=== PATIENT | male | born 1945 | race Caucasian/White ===

== ENCOUNTER 2018-04-16 10:31 | Day surgery (SDC) | payer OTHER, SELFPAY ==
[2018-04-03 12:55] VITALS: BMI 24.4
[2018-04-16] VITALS (7 sets, daily range): BP systolic 112–143; BP diastolic 71–82; PULSE 70–77; RESP 12–18; TEMP 36–36.8; O2SAT 97–100; BMI 24.4
--- NOTE | 2018-04-16 | PATH_ITS ---
[facility] Accession Number: [id number] . 01 Material submitted: . ANAL CONDYLOMA . 01 Clinical history: . ANAL CONDYLOMA; RULE OUT SQUAMOUS CELL CA . 01 Diagnosis: Anal, Biopsy: Consistent, in the proper clinical setting, with condyloma acuminatum, markedly inflamed (please see comment). MRV/04/21/2018 . 01 Comment: Although there is mild keratinocytic atypia, these changes are favored to be reactive. Dermal fibrosis and changes suggestive of epidermal inclusion cyst formation are also noted. Clinical pathological correlation is advised. . 01 Electronically signed: . Varsha Cadet MD, Dermatopathologist NPI- [id number] . 01 Gross description: . Received in formalin, labeled with the patient's name and anal condyloma, rule out squamous cell carcinoma are six bell-brown verrucoid soft tissue fragments measuring 2.8 x 2.5 x 0.6 cm in aggregate. The specimen is serially sectioned and entirely submitted in cassettes A1-A2. (MARILYN:[id number]) /MRV . Pathologist provided ICD-10: A63.0 . 01 CPT . 777980 Performed at: 01 [facility] [address], [place], [place] [id number] MD Edgard Velázquez MD Phone: [phone]
[2018-04-16] MEDS: LACTATED RINGERS 1,000 ML 42 ML IV (11:09)
--- NOTE | 2018-04-16 11:13 | PM.PREOP ---
Pre-operative Note Interval Note Pre-op Check: Yes History & Physical Reviewed by Physician and Yes Exam Performed Changes: No
--- NOTE | 2018-04-16 11:42 | SUR.OPER ---
Prone on padded OR bed, head in foam head support, gel chest rolls, gel pad under knees, pillow under lower legs, toes free of pressure, arms secured on padded arm boards at <90 degrees abduction. Safety belt at thigh.
[2018-04-16] MEDS: BUPIVACAINE 0.5% (PF) VIAL 30 ML INJ (11:53)
[2018-04-16] MEDS: DIBUCAINE 1% OINT 28 GM 1 APPLIC TOP (12:00)
--- NOTE | 2018-04-16 12:04 | SUR.OPER ---
GLASSES TO PACU WITH PATIENT IN LABELED CONTAINER
--- NOTE | 2018-04-16 12:18 | PM.OP.1 ---
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 May be squamous cell carcinoma. Post-op diagnosis: same Procedure & Clinicians Procedure: Excision and fulguration of perianal lesions. Same procedure as scheduled: Yes Indications: Diagnostic/therapeutic Surgeon: Yannick Duran Anesthesia Type: General Operative Notes Findings: Circumferential lesions at the anal verge. Significant portions excised. The remainder fulgurated. Thickened rubbery texture worrisome for squamous cell carcinoma Closure Type: not applicable Specimen(s): other (Perianal lesions) Implants & Drains: None Estimated Blood Loss (mL): 5 Procedure in detail: Patient was placed active prone on the operating table after undergoing general endotracheal anesthesia. Was prepped and draped in the usual fashion. [place] and digital examination were performed circumferentially. A lesions seen with those at the perianal skin. I excised a significant portion of these and sent for permanent section. The remainder I cauterize. These are thickened waxy he pieces of tissue. I did not cut the anal sphincters. These lesions were lifted off of them. Nupercainal and Gel-Foam was inserted onto the perianal skin after injecting local anesthetic. Dressing was applied and the patient was placed supine on his bed extubated and taken recovery room good condition Complications: none Condition: stable Disposition: PACU Plan for aftercare: Follow-up in 7-10 days.
--- NOTE | 2018-04-16 12:22 | P.OP_ITS ---
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 May be squamous cell carcinoma. Post-op diagnosis: same Procedure & Clinicians Procedure: Excision and fulguration of perianal lesions. Same procedure as scheduled: Yes Indications: Diagnostic/therapeutic Surgeon: Yannick Duran Anesthesia Type: General Operative Notes Findings: Circumferential lesions at the anal verge. Significant portions excised. The remainder fulgurated. Thickened rubbery texture worrisome for squamous cell carcinoma Closure Type: not applicable Specimen(s): other (Perianal lesions) Implants & Drains: None Estimated Blood Loss (mL): 5 Procedure in detail: Patient was placed active prone on the operating table after undergoing general endotracheal anesthesia. Was prepped and draped in the usual fashion. [place] and digital examination were performed circumferentially. A lesions seen with those at the perianal skin. I excised a significant portion of these and sent for permanent section. The remainder I cauterize. These are thickened waxy he pieces of tissue. I did not cut the anal sphincters. These lesions were lifted off of them. Nupercainal and Gel- Foam was inserted onto the perianal skin after injecting local anesthetic. Dressing was applied and the patient was placed supine on his bed extubated and taken recovery room good condition Complications: none Condition: stable Disposition: PACU Plan for aftercare: Follow-up in 7-10 days.
== END 2018-04-16 13:17 | disposition home or self-care (01) ==
PROVIDERS: PCP Family Medicine; Visit Provider Specialist
PROC: (CPT 45990; principal; 2018-04-16 11:00)
DX: A63.0 Anogenital (venereal) warts (principal)
CPT/HCPCS: 46922; 46910; J0330; J1100; J2405; J2704; J3010

== ENCOUNTER → 2022-06-03 06:59 | Outpatient (CLI) | payer MEDICARE, SELFPAY ==
[2022-06-03 20:08] LABS: COVID19 - ORCAS (NP or Nasal) Negative (Negative)
== END ==
PROVIDERS: PCP Family Medicine; Visit Provider Family Medicine
DX: Z20.822 Contact with and (suspected) exposure to COVID-19 (principal); Z01.812 Encounter for preprocedural laboratory examination
CPT/HCPCS: C9803; U0003